=== PATIENT | female | born 1985 | race Caucasian/White ===

== ENCOUNTER 2024-09-28 11:22 | Inpatient (IN) | payer MEDICAID ==
[~2024-09-28] VITALS: Ht 160 cm; Wt 84.9 kg
[~2024-09-28 11:22] MED LIST: ABIL2TAB PO; ADV250INH INH; CELE10TA PO; CELE20TA GT; CONC27TA2 PO; DEPA1TAB3 PO; DEPA500T2 PO; HYDR50CA2 PO; MECL-68 PO; MINI2CAP PO; MONT10TA2 PO; Mucinex OR; OLAN2.5T PO; OMEP40CA2 PO; PRAZ2CAP PO; PRED5TA PO; RISP1TAB3 PO; TRAZ50TA2 PO; VENTAER IN; ZIPR20INJ PO
[2024-09-28 12:32] LABS: HEMATOCRIT 40.7 % (36.0-47.0); HEMOGLOBIN 13.5 g/dl (12.0-15.5); MEAN CORPUSCULAR HEMOGLOBIN 29.1 pg (27.0-33.0); MEAN CORPUSCULAR HGB CONC 33.2 g/dl (32.0-36.5); MEAN CORPUSCULAR VOLUME 87.7 fl (80.0-96.0); PLATELET COUNT, AUTOMATED 107 10^3/uL (150-450); RED BLOOD COUNT 4.64 10^6/uL (4.00-5.40); WHITE BLOOD COUNT 7.1 10^3/uL (4.0-10.0)
[2024-09-28 12:44] LABS: AMPHETAMINES LEVEL URINE NEGATIVE (NEGATIVE); BARBITURATES URINE NEGATIVE (NEGATIVE); BENZODIAZEPINES URINE NEGATIVE (NEGATIVE); CANNABINOIDS URINE NEGATIVE (NEGATIVE); COCAINE METABOLITE URINE NEGATIVE (NEGATIVE); METHADONE URINE NEGATIVE (NEGATIVE); OPIATES URINE NEGATIVE (NEGATIVE); PHENCYCLIDINE URINE NEGATIVE (NEGATIVE)
[2024-09-28 12:59] LABS: ETHYL ALCOHOL (ETHANOL) < 0.003 % (0.000-0.010)
[2024-09-28 13:00] LABS: SALICYLATE LEVEL < 3.0 MG/DL (<30)
[2024-09-28 13:01] LABS: ALBUMIN 4.1 G/DL (3.2-5.2); ALKALINE PHOSPHATASE 65 U/L (35-104); ALT/SGPT 17 U/L (7.0-40); AST/SGOT 19 U/L (<34); BILIRUBIN,DIRECT 0.2 MG/DL (<0.4); BILIRUBIN,TOTAL 0.9 MG/DL (0.3-1.2); BLOOD UREA NITROGEN 14 MG/DL (9-23); CALCIUM LEVEL 8.8 MG/DL (8.5-10.1); CARBON DIOXIDE LEVEL 26 MMOL/L (20-31); CHLORIDE LEVEL 105 MMOL/L (98-107); CREATININE FOR GFR 0.97 MG/DL (0.55-1.30); GLOMERULAR FILTRATION RATE > 60.0 (>60); GLUCOSE, FASTING 89 MG/DL (60-100); POTASSIUM SERUM 3.8 MMOL/L (3.5-5.1); SODIUM LEVEL 141 MMOL/L (136-145); TOTAL PROTEIN 7.2 G/DL (5.7-8.2)
[2024-09-28 13:02] LABS: THYROID STIMULATING HORMONE 0.773 uIU/ML (0.55-4.78)
[2024-09-28] MEDS ORDERED: BUSP10TA PO (14:15)
[2024-09-28] MEDS ORDERED: HYDR50TA70 PO (14:15)
[2024-09-28] MEDS ORDERED: QUET100T2 PO (14:15)
[2024-09-28] MEDS ORDERED: OMEP40CA5 PO (14:15)
[2024-09-28] MEDS ORDERED: ALBU8.5H INH (14:15)
[2024-09-28] MEDS ORDERED: CLON1TAB8 PO (14:15)
[2024-09-28] MEDS ORDERED: LAMO100T3 PO (14:15)
[2024-09-28] MEDS ORDERED: FURO40TA2 PO (14:15)
[2024-09-28] MEDS ORDERED: FLUTISP NARES (14:15)
[2024-09-28] MEDS ORDERED: CETI-24 PO (14:15)
[2024-09-28] MEDS ORDERED: HOME MED LIST COMPLETE! XX SCH (14:20)
[2024-09-28 15:12] VITALS: BP 133/58; TEMP 98; O2SAT 100
[2024-09-28] MEDS ORDERED: IBUPROFEN 400MG TAB PO PRN (15:30)
[2024-09-28] MEDS ORDERED: MAALOX 30 ML SUSP *UDC PO PRN (15:30)
[2024-09-28] MEDS ORDERED: MOM 30ML SUSPENSION UDC PO PRN (15:30)
[2024-09-28] MEDS ORDERED: hydrOXYzine 50 MG TAB PO PRN (15:40)
[2024-09-28] MEDS: busPIRone 10 MG TAB PO SCH (20:31)
[2024-09-28] MEDS: QUEtiapine FUMARATE 100 MG TAB PO SCH (20:31)
[2024-09-29] MEDS: ACETAMINOPHEN 325 MG TAB PO PRN (03:22)
[2024-09-29] MEDS: LORazepam 1 MG TAB PO PRN (04:59)
[2024-09-29 06:41] VITALS: BP 108/76; TEMP 97.8; O2SAT 97
[2024-09-29] MEDS: NICOTINE 14 MG/24 HR TRANSDERMAL TD SCH (08:03)
[2024-09-29] MEDS: CETIRIZINE (ZyrTEC) 10 MG TAB PO SCH (08:07)
[2024-09-29] MEDS: FUROSEMIDE 40 MG TAB PO SCH (08:07)
[2024-09-29] MEDS: ALBUTEROL 90 MCG/ACT 8GM HFA INHALER INH PRN (08:08)
[2024-09-29] MEDS ORDERED: clonazePAM 1 MG TAB PO PRN (09:35)
[2024-09-29] MEDS: FLUTICASONE PROP 0.05% NASAL SPRAY 16 GM (FLONASE) NARES SCH (10:03)
[2024-09-29] MEDS ORDERED: DICLOFENAC EPOLAMINE 1.3% PATCH TOP SCH (13:10)
[2024-09-29 14:36] LABS: KETONE, URINE AUTO RFX NEGATIVE (NEGATIVE); LEUKOCYTE ESTERASE UR AUTO RFX NEGATIVE (NEGATIVE); MUCUS, URINE RFX SMALL (NEGATIVE); NITRITE, URINE AUTO RFX NEGATIVE (NEGATIVE); RBC, URINE AUTO RFX 5 /HPF (0-3); SQUAM EPITHELIAL CELL UR AURFX 1 /HPF (0-6); WBC, URINE AUTO RFX 1 /HPF (0-3)
[2024-09-29 14:43] LABS: URINE PREG TEST NEGATIVE (NEGATIVE)
[2024-09-29] MEDS: OMEPRAZOLE 20MG CAP PO ONE (14:52)
[2024-09-29] MEDS: busPIRone 10 MG TAB PO SCH (15:09)
[2024-09-29 15:31] VITALS: BP 112/56; TEMP 97.5; O2SAT 98
[2024-09-29] MEDS: ACETAMINOPHEN 500 MG TAB PO SCH (18:06)
[2024-09-29] MEDS ORDERED: MOM 30ML SUSPENSION UDC PO PRN (19:45)
[2024-09-29] MEDS ORDERED: MIRALAX *UNIT DOSE* 17GM PACKET PO PRN (19:45)
[2024-09-29] MEDS: QUEtiapine FUMARATE 50MG TAB PO SCH (20:10)
[2024-09-29] MEDS: SENOKOT S TAB PO ONE (20:10)
[2024-09-30 06:37] VITALS: BP 133/59; TEMP 96.9; O2SAT 100
[2024-09-30 07:38] LABS: CHOLESTEROL RISK RATIO 3.42 (<5); HDL CHOLESTEROL 52.6 MG/DL (>40); LDL CHOLESTEROL 111.8 MG/DL (<100); NON-HDL-C 127.4 MG/DL
[2024-09-30] MEDS: OMEPRAZOLE 20MG CAP PO SCH (08:18)
[2024-09-30] MEDS ORDERED: SENOKOT S TAB PO PRN (09:00)
[2024-09-30 14:49] VITALS: BP 119/65; TEMP 97.7; O2SAT 95
[2024-09-30] MEDS: diphenhydrAMINE 25MG CAP PO PRN (15:14)
[2024-10-01] MEDS: traMADol 50 MG TAB PO PRN (04:20)
[2024-10-01 06:33] VITALS: BP 105/59; TEMP 97.1; O2SAT 100
[2024-10-01 17:02] VITALS: BP 111/66; TEMP 97.1; O2SAT 96
[2024-10-01] MEDS: traZODone 50 MG TAB PO PRN (20:41)
[2024-10-02 06:09] VITALS: BP 109/67; TEMP 97.2; O2SAT 99
[2024-10-02 15:14] VITALS: BP 106/55; TEMP 98.3; O2SAT 98
[2024-10-03 06:57] VITALS: BP 133/70; TEMP 97.4; O2SAT 100
[2024-10-03 14:45] VITALS: BP 125/72; TEMP 97.9; O2SAT 97
[2024-10-04 06:42] VITALS: BP 118/61; TEMP 98; O2SAT 97
[2024-10-04] MEDS ORDERED: TRAZ-252 PO (10:36)
[2024-10-04] MEDS ORDERED: MIRA33506 PO (10:36)
[2024-10-04] MEDS ORDERED: HYDR-3363 PO (10:36)
[2024-10-04] MEDS ORDERED: BUSP10TA PO (10:36)
[2024-10-04] MEDS ORDERED: OMEP-173 PO (10:36)
[2024-10-04] MEDS ORDERED: QUET50TA4 PO (10:36)
== END 2024-10-04 13:50 | disposition home or self-care (01) | DRG 754 ==
LOC: M ED 11:22 → M ED INP 14:18 → M PSY 15:39
PROVIDERS: ADMIT Internal Medicine; ATTEND Internal Medicine
DX: F32.9 Major depressive disorder, single episode, unspecified (principal); R45.850 Homicidal ideations; R45.851 Suicidal ideations; F31.81 Bipolar II disorder; Z88.0 Allergy status to penicillin; Z91.030 Bee allergy status; Z91.040 Latex allergy status; Z88.8 Allergy status to other drugs, medicaments and biological substances; F17.200 Nicotine dependence, unspecified, uncomplicated; Z79.899 Other long term (current) drug therapy; M54.50 Low back pain, unspecified; J45.909 Unspecified asthma, uncomplicated; F60.3 Borderline personality disorder